=== PATIENT | female | born 1975 | race Caucasian/White ===

== ENCOUNTER 2023-03-03 01:10 | Emergency (ER) | payer MEDICAID ==
[~2023-03-03] VITALS: Ht 152.4 cm; Wt 70.8 kg
[2023-03-03 01:27] VITALS: BP 142/99; PULSE 104; RESP 20; TEMP 98; O2SAT 96
[2023-03-03] MEDS ORDERED: ONDANSETRON 4 MG ODT PO ONE (01:30)
[2023-03-03] MEDS ORDERED: LORazepam 1 MG TAB PO ONE (01:30)
[2023-03-03] MEDS ORDERED: AMLO-271 PO ×2 (02:11→03:06)
[2023-03-03] MEDS ORDERED: HYDR25CA1 PO ×2 (02:11→03:06)
--- NOTE | 2023-03-03 02:20 | NUR ---
Patient is a 47/F who came in due to high blood pressure associated with occasional shortness of breath, nausea/vomiting and headache x 1 day ago. Yesterday, patient lost an immediate family member. Patient denies chest pain, fever/chills or abdominal pain. PMHx: HTN (Recently diagnosed) NKA
[2023-03-03] MEDS ORDERED: ONDA-188 PO ×2 (02:23→03:06)
--- NOTE | 2023-03-03 02:25 | NUR ---
Patient discharged. Written and verbal after care instructions given and explained. Patient alert, oriented and verbalized understanding of instructions. Ambulatory with steady gait. All questions addressed prior to discharge. ID band removed. Patient advised to follow up with PMD. Rx of Amlodipine & Vistaril given. Patient educated on indication of medication including possible reaction and side effects. Opportunity to ask questions provided and answered.
[2023-03-03 02:32] VITALS: BP 135/93; PULSE 94; RESP 16; TEMP 98; O2SAT 100
== END 2023-03-03 02:25 | disposition home or self-care (01) ==
LOC: MED 01:10
DX: I10 Essential (primary) hypertension (principal); Z63.4 Disappearance and death of family member; Z79.899 Other long term (current) drug therapy
CPT/HCPCS: 99283; Q0162